=== PATIENT | male | born 2000 | race Caucasian/White ===

== ENCOUNTER 2021-02-08 12:44 | Emergency (ER) | payer OTHER, SELFPAY ==
[2021-02-08 12:45] VITALS: BP 150/95; PULSE 82; RESP 20; TEMP 36.7; O2SAT 100; BMI 32.3
--- NOTE | 2021-02-08 12:52 | HMH.EDGENADL ---
ED Disposition Clinical Impression: Strain of rectus abdominis muscle Qualifiers: Encounter type: initial encounter Qualified Code(s): S39.011A - Strain of muscle, fascia and tendon of abdomen, initial encounter Disposition: Home, Self-Care Condition on Discharge: Good Referrals: PCPEmily [Primary Care Provider] - 3 days Time of Disposition: 13:36 - Critical Care Critical Care Time: No Attestation: On , the high probability of a clinically significant, sudden or life threatening deterioration of the following system(s) required my full and direct attention, intervention and personal management. The time I documented below is in addition to time spent performing reported procedures but includes the following listed in this critical care notation. Medical Decision Making - Medical Records Medical records reviewed: Yes: I reviewed the patient's medical records. - Pawel Inquiry Pt receiving controlled substance: No Vital Signs: 02/08/21 12:45 Temperature 98.1 F Temperature Source Oral Pulse Rate [Left Radial] 82 Respiratory Rate 20 Blood Pressure [Right Arm] 150/95 H Blood Pressure Mean [Right Arm] 113 Blood Pressure Source [Right Arm] Automatic Cuff Blood Pressure Position [Right Arm] Sitting 02 Sat by Pulse Oximetry 100 Oxygen Delivery Method Room Air Medical Decision Narrative: 20yo M evaluated for concern of possible hernia. Patient is in no acute distress initial evaluation. He is ambulatory without difficulty. Exam is benign. Patient's history of feeling extra contents in his scrotum that are now not there is concerning for possible hernia. Offered the patient a CAT scan but he declines at this time as his exam is unremarkable. Encourage patient to follow-up with his PCP early next week. Strongly counseled the patient on return to emergency department parameters. Patient voiced understanding. Patient is appropriate and stable for discharge at this time. General Adult HPI - General Stated complaint: possible hernia in groin area Time Seen by Provider: 02/08/21 12:52 Mode of Arrival: Ambulatory - History of Present Illness HPI narrative: 20yo M without significant past medical history reports emergency department secondary to pain in his scrotum while he was at work. He reports he was lifting a heavy pallet when he suddenly developed sharp pain in his scrotum. He denies previous episodes similar to this. He denies any surgery to this area or his abdomen in the past. Patient does smoke daily. He denies any recent fever, nausea/vomiting/diarrhea. Patient was concerned he may have a hernia. He spoke with a friend that is a nurse and he advised him to be evaluated emergency department. Patient states he did go to the restroom and checked himself at work and felt as though he had extra material in his scrotum but he checked again before arriving at the emergency department and it was no longer there. [facility] History - Hepatitis A Screen Drug use history?: No Attestation statement:: This patient has been screened for Hepatitis A risk factors. I have reviewed the patient's past medical history: Yes - Social History Tobacco Type: cigarettes ROS Obtained: Yes All systems reviewed & no additional complaints Physical Exam - General General appearance: alert, in no apparent distress - Head Head exam: atraumatic, normocephalic, normal inspection - Eye Eye exam: Present: normal appearance, EOMI - Chest Chest inspection: Present: symmetric chest wall rise - Respiratory Respiratory exam: Present: normal lung sounds bilaterally. Absent: respiratory distress - Cardiovascular Cardiovascular exam: Present: regular rate, normal rhythm. Absent: JVD - Abdominal Exam Abdominal exam: Present: soft, tenderness (Mild tenderness along superior pubic bones bilaterally), normal bowel sounds. Absent: distention - exam: Present: normal inspection, normal testicular lie. Absent: testicular
[2021-02-08 13:40] VITALS: BP 160/85; PULSE 84; RESP 18; TEMP 36.8; O2SAT 99
== END 2021-02-08 13:42 | disposition home or self-care (01) ==
PROVIDERS: Emergency Provider Family Medicine
DX: S39.011A Strain of muscle, fascia and tendon of abdomen, initial encounter (principal); X50.0XXA Overexertion from strenuous movement or load, initial encounter; Y92.69 Other specified industrial and construction area as the place of occurrence of the external cause; F17.210 Nicotine dependence, cigarettes, uncomplicated
CPT/HCPCS: 99281

== ENCOUNTER 2023-01-15 15:48 | Emergency (ER) | payer SELFPAY ==
[2023-01-15 15:58] VITALS: BP 141/79; PULSE 83; RESP 18; TEMP 36.7; O2SAT 100; BMI 38.2
[2023-01-15 16:14] VITALS: BP 135/80; PULSE 83; RESP 17; TEMP 36.7; O2SAT 99; BMI 38.1
--- NOTE | 2023-01-15 16:16 | EXP.UTC ---
Discharge Plan Disposition Patient Disposition: Home, Self-Care Condition: Good Prescriptions Prescriptions: New cyclobenzaprine 10 mg Tablet 10 mg PO BID PRN (Reason: Muscle Spasm) Qty: 20 0RF methylprednisolone 4 mg Tablets,Dose Pack 4 mg PO DIRECTED Qty: 21 0RF Referrals Follow up/Referrals: Provider,Referral, [Primary Care Provider] - See instructions Activity Restrictions/Add. Instructions Additional Instructions/Restrictions: Go home and rest. It would be best if you rested tomorrow too. No heavy lifting. No twisting. Take the oral medications as directed. The muscle relaxer (cyclobenzaprine--Flexeril) will make you drowsy, so don't drive or operate heavy machinery after taking it. Don't start the oral steroids (medrol dose pack) until tomorrow, since you had the shots in here today. Follow up with your regular doctor. GO TO THE ER FOR ANY WORSENING SYMPTOMS OR CONCERN, ESPECIALLY BOWEL OR BLADDER ISSUES, SADDLE AREA NUMBNESS, FEVER, ETC Clinical Impressions Clinical Impression: Low back pain Stand Alone Forms Stand Alone Forms: Work/School Release Instructions Patient Instructions: DI for Low Back Pain, Cyclobenzaprine Discharge ED Provider: David Cramer [facility] General Stated complaint: back pain Mode of Arrival: Ambulatory Source of Information: Patient Limitations: No Limitations Time Seen by Provider: 01/15/23 16:16 Description of Symptoms (Recalled from Triage Doc. by RN): pt c/o R sided lower back pain radiating down R lower glute. Pt denies any injury. History of Present Illness Provider Complaint: He states that for the past 1 day he has had low back pain that radiates down his right leg. He denies any injury. He denies any urinary or bowel complaints. Related Data Previous Rx's Medication Instructions Recorded cyclobenzaprine 10 mg tablet 10 mg PO BID PRN Muscle Spasm #20 01/15/23 tabs methylprednisolone 4 mg tablets in 4 mg PO DIRECTED #21 tabs 01/15/23 a dose pack Allergies Allergy/AdvReac Type Severity Reaction Status Date / Time morphine Allergy Verified 01/15/23 16:[address] [facility] Disclaimer: The information contained in this section may have been updated after the patient was seen, as this information can be updated by other users. Social History Smoking Status: Never smoker alcohol intake: never current occupational status: employed Travel in the last 8 weeks: None ROS Obtained: Yes All systems reviewed & no additional complaints except as documented Constitutional Constitutional: Denies chills and Denies fever(s) Eyes Eyes: Denies eye discharge ENT Ears, Nose, Mouth, and Throat: Denies dizziness, Denies otalgia and Denies sore throat Cardiovascular Cardiovascular: Denies chest pain Respiratory Respiratory: Denies shortness of breath, Denies chest congestion, Denies cough, Denies stridor and Denies wheezing Gastrointestinal Gastrointestingal: Denies nausea or vomiting Musculoskeletal Musculoskeletal: Reports as per HPI and Reports back pain Integumentary/Breasts Skin/Breast: Denies rash Neurologic Neurologic: Denies dizziness and Denies paresthesias Allergic/Immunologic Allergic/Immunologic: Denies wheezing Physical Exam General General appearance: alert and in no apparent distress Head Head exam: atraumatic, normocephalic and normal inspection Eye Eye exam: Present normal appearance, PERRL and EOMI ENT ENT exam: Present normal exam, normal oropharynx, mucous membranes moist, TM's normal bilaterally and normal external ear exam Neck Neck exam: Present normal inspection, full ROM and trachea midline; Absent meningismus or lymphadenopathy Chest Chest inspection: Present normal inspection and symmetric chest wall rise; Absent tenderness Respiratory Respiratory exam: Present normal lung sounds bilaterally; Absent respiratory distress Cardiovascular Cardiov
[2023-01-15 17:12] VITALS: BP 135/80; PULSE 83; RESP 17; TEMP 36.6
== END 2023-01-15 17:13 | disposition home or self-care (01) ==
PROVIDERS: Emergency Provider Nurse Practitioner Family
DX: M54.50 Low back pain, unspecified (principal)
CPT/HCPCS: 96372; 99212; 99214; G0463

== ENCOUNTER 2023-08-28 23:19 | Emergency (ER) | payer SELFPAY ==
--- NOTE | 2023-08-28 23:13 | ECG_ITS ---
APPROVED REPORT Exam: Resting ECG HR:85 bpm ECG Measurements Heart Rate 85 AXES MN 186 P 55 QRSd 102 QRS 54 QT 357 T 32 QTc 399 Conclusion SINUS RHYTHM NORMAL ECG UNCONFIRMED REPORT Electronically signed by : Min Denton MD 08/30/2023 08:40:30
[2023-08-28 23:19] VITALS: BP 149/85; PULSE 95; RESP 19; TEMP 36.8; O2SAT 96; BMI 45.6
[2023-08-28 23:27] LABS: POC Glucose,Bedside 89 (70-110)
--- NOTE | 2023-08-28 23:30 | CT_ITS ---
PROCEDURE INFORMATION: Exam: CT Head Without Contrast Exam date and time: 08/29/2023 12:40 AM Age: 22 years old Clinical indication: Stroke-like symptoms; Headache; Additional info: Left sided numbness weakness TECHNIQUE: Imaging protocol: Computed tomography of the head without contrast. Radiation optimization: All CT scans at this facility use at least one of these dose optimization techniques: automated exposure control; mA and/or kV adjustment per patient size (includes targeted exams where dose is matched to clinical indication); or iterative reconstruction. Other technique: STROKE PROTOCOL was implemented. REPORTING DATA: Count of CT and Cardiac NM exams in prior 12 months: This patient has received 0 known CTs and 0 known cardiac nuclear medicine studies in the 12 months prior to the current study. COMPARISON: No relevant prior studies available. FINDINGS: Brain: Normal. No hemorrhage. Age appropriate white matter. No mass effect. No focal mass. The bustillo-white matter junction is intact. Cerebral ventricles: No ventriculomegaly. Paranasal sinuses: Visualized sinuses are unremarkable. No fluid levels. Mastoid air cells: Visualized mastoid air cells are well aerated. Bones/joints: Unremarkable. No acute fracture. Soft tissues: Unremarkable. IMPRESSION: Normal examination of brain. There is no acute intracranial abnormality. There is no structural abnormality. ASSESSMENT: ASPECTS (Stephanie Stroke Program Early CT Score) is 10.
--- NOTE | 2023-08-28 23:30 | XR_ITS ---
PROCEDURE INFORMATION: Exam: XR Chest Exam date and time: 08/29/2023 12:05 AM Age: 22 years old Clinical indication: Pain; Chest pressure; Additional info: Chest pain TECHNIQUE: Imaging protocol: Radiologic exam of the chest. Views: 1 view. COMPARISON: No relevant prior studies available. FINDINGS: Lungs: Unremarkable. No consolidation. There is no focal mass. Pleural spaces: Unremarkable. No pleural effusion. No pneumothorax. Heart/Mediastinum: Unremarkable. No cardiomegaly. Bones/joints: Unremarkable. There is no acute fracture present. IMPRESSION: No evidence for acute cardiac or pulmonary process.
--- NOTE | 2023-08-28 23:31 | CT_ITS ---
PROCEDURE INFORMATION: Exam: CTA Neck With Contrast Exam date and time: 08/29/2023 12:46 AM Age: 22 years old Clinical indication: Stroke-like symptoms; Headache; Additional info: Left sided numbness weakness TECHNIQUE: Imaging protocol: Computed tomographic angiography of the neck with contrast. Exam focused on the cervical segments of the vasculature. 3D rendering (Not supervised by radiologist): MIP and/or 3D reconstructed images were created by the technologist. Radiation optimization: All CT scans at this facility use at least one of these dose optimization techniques: automated exposure control; mA and/or kV adjustment per patient size (includes targeted exams where dose is matched to clinical indication); or iterative reconstruction. Contrast material: ISOVUE; Contrast volume: 100 ml; Contrast route: INTRAVENOUS (IV); REPORTING DATA: Count of CT and Cardiac NM exams in prior 12 months: This patient has received 0 known CTs and 0 known cardiac nuclear medicine studies in the 12 months prior to the current study. COMPARISON: CT HEAD/BRAIN WO CON 08/29/2023 12:40 AM FINDINGS: Right common carotid artery: No stenosis. No dissection or occlusion. Right internal carotid artery: No significant stenosis. No dissection or occlusion. Right external carotid artery: No occlusion or stenosis of the origin. Left common carotid artery: No stenosis. No dissection or occlusion. Left internal carotid artery: No significant stenosis. No dissection or occlusion. Left external carotid artery: No occlusion or stenosis of the origin. Right vertebral artery: No stenosis. No dissection or occlusion. Left vertebral artery: No stenosis. No dissection or occlusion. Soft tissues: Normal. No significant soft tissue swelling. Bones/joints: No acute fracture. IMPRESSION: Unremarkable examination with no significant stenosis, dissection, or occlusion. REFERENCES: NASCET CRITERIA. The degree of stenosis in the cervical segment of the internal carotid artery is based on NASCET criteria. Normal is no stenosis. Mild is less than 50% stenosis. Moderate is 50-69% stenosis. Severe is 70% to 99% stenosis. Total occlusion is no detectable patent lumen.
--- NOTE | 2023-08-28 23:31 | CT_ITS ---
PROCEDURE INFORMATION: Exam: CTA Head With Contrast, Arteriography Exam date and time: 08/29/2023 12:46 AM Age: 22 years old Clinical indication: Stroke-like symptoms; Headache; Additional info: Left sided numbness weakness TECHNIQUE: Imaging protocol: Computed tomographic angiography of the head with contrast. Exam focused on the arteries. 3D rendering (Not supervised by radiologist): MIP and/or 3D reconstructed images were created by the technologist. Radiation optimization: All CT scans at this facility use at least one of these dose optimization techniques: automated exposure control; mA and/or kV adjustment per patient size (includes targeted exams where dose is matched to clinical indication); or iterative reconstruction. Contrast material: ISOVUE; Contrast volume: 100 ml; Contrast route: INTRAVENOUS (IV); REPORTING DATA: Count of CT and Cardiac NM exams in prior 12 months: This patient has received 0 known CTs and 0 known cardiac nuclear medicine studies in the 12 months prior to the current study. COMPARISON: CT HEAD/BRAIN WO CON 08/29/2023 12:40 AM FINDINGS: ANTERIOR CIRCULATION: Right internal carotid artery: Intracranial segment is patent with no significant stenosis. No aneurysm. Right middle cerebral artery: No occlusion or significant stenosis. No aneurysm. Right anterior cerebral artery: No occlusion or significant stenosis. No aneurysm. Left internal carotid artery: Intracranial segment is patent with no significant stenosis. No aneurysm. Left middle cerebral artery: No occlusion or significant stenosis. No aneurysm. Left anterior cerebral artery: No occlusion or significant stenosis. No aneurysm. POSTERIOR CIRCULATION: Right vertebral artery: No occlusion or significant stenosis. No aneurysm. Left vertebral artery: No occlusion or significant stenosis. No aneurysm. Basilar artery: No occlusion or significant stenosis. No aneurysm. Right posterior cerebral artery: No occlusion or significant stenosis. No aneurysm. Left posterior cerebral artery: No occlusion or significant stenosis. No aneurysm. Veins: There is no venous thrombosis. Brain: No definite mass, mass effect, or midline shift. Cerebral ventricles: No ventriculomegaly. Bones/joints: Unremarkable. No acute fracture. Soft tissues: Unremarkable. IMPRESSION: No evidence for a embolism, dissection, aneurysm, or venous thrombosis. There is no significant stenosis.
--- NOTE | 2023-08-28 23:46 | PC.NURSE ---
Patient gone to CT
--- NOTE | 2023-08-28 23:50 | PC.NURSE ---
patient back in room at this time.
[2023-08-28 23:51] VITALS: BP 131/75; PULSE 89; RESP 20; O2SAT 98
[2023-08-29] VITALS: BP 135/74; RESP 12
--- NOTE | 2023-08-29 00:17 | PC.NURSE ---
Md on phone with CB nurse navigator Vicky veronica
[2023-08-29 00:27] LABS: Basophils % 0.4 % (0.1-2.0); Eosinophils # 0.3 K/mm3 (0.0-0.4); Eosinophils % 3.7 % (0.1-12.0); Hematocrit 40.8 % (42.0-52.0); Hemoglobin 13.9 g/dL (14.1-18.0); Lymphocytes # 3.1 K/mm3 (0.7-4.5); Lymphocytes % 35.1 % (10-50); Mean Corpuscular HGB Conc 34.1 g/dL (31.8-35.4); Mean Corpuscular Hemoglobin 29.7 pg (27.0-31.2); Mean Corpuscular Volume 87.3 fl (80-94); Mean Platelet Volume 7.4 fl (7.4-10.4); Monocytes # 0.6 K/mm3 (0.1-1.0); Monocytes % 7.2 % (1.7-9.3); Neutrophils # 4.7 K/mm3 (1.8-7.8); Neutrophils % 53.5 % (37.0-80.0); Platelet Count 255 K/mm3 (142-424); Red Blood Count 4.68 M/mm3 (4.60-6.20); Red Cell Distribution Width 13.1 % (11.5-17.5); White Blood Count 8.8 K/mm3 (4.8-10.8)
[2023-08-29 00:34] LABS: Chloride 103 mmol/L (98-107); Potassium 3.5 mmoL/L (3.5-5.1); Sodium 138 mmol/L (136-145)
[2023-08-29 00:37] LABS: Alanine Aminotransferase 39 U/L (12-78); Albumin Level 4.3 g/dl (3.5-5.0); Albumin/Globulin Ratio 1.4 (1.1-1.8); Alkaline Phosphatase 71 U/L (38-126); Anion Gap 11.5 mEq/L (5-15); Aspartate Amino Transferase 44 U/L (17-59); Bilirubin,Total 0.2 mg/dl (0.2-1.3); Blood Urea Nitrogen 15 mg/dl (9-20); Carbon Dioxide 27 mmol/L (22.0-30.0); Creatinine Clearance Estimated 161 mL/min (50-200); Estimated Glomerular Filt Rate 105 ml/min (>60); GFR (African American) 127 ML/MIN (>60); Globulin 3.1 g/dL (1.3-3.2); Total Protein,Serum 7.4 g/dl (6.3-8.2)
[2023-08-29 00:38] LABS: Calcium 8.5 mg/dl (8.4-10.2); Glucose 108 mg/dl (74-100)
[2023-08-29 00:39] LABS: Activated Partial Thrombo Time 29.8 seconds (22.8-30.6); INR 1.06 (0.9-1.1); Prothrombin Time 11.4 seconds (10.1-12.5)
[2023-08-29 00:45] LABS: Cholesterol 184 mg/dl (140-200); Triglycerides 142 mg/dl (30-150); VLDL Cholesterol 28 mg/dL (0-40)
[2023-08-29 00:46] LABS: Chol/HDL Ratio 5.8 (1-3.5); HDL Cholesterol 32 mg/dl (40-60)
[2023-08-29 00:51] LABS: Troponin I < 0.01 ng/ml (0.00-0.034)
[2023-08-29 00:56] LABS: Direct LDL Cholesterol 120.09 mg/dL (100-129)
[2023-08-29 01:01] VITALS: BP 116/70; RESP 16
--- NOTE | 2023-08-29 01:10 | HMH.EDGENADL ---
Discharge Plan Disposition Patient Disposition: Home, Self-Care Prescriptions Prescriptions: No Action No Known Home Medications Referrals Follow up/Referrals: Bonnie Wilson MD [Staff Physician] - See instructions Provider,MD Brad [Primary Care Provider] - See instructions Activity Restrictions/Add. Instructions Additional Instructions/Restrictions: Please call to follow-up with Dr. Wilson regarding your symptoms. Please return to the emergency department if you develop any new or worsening symptoms or become concerned for your health. Clinical Impressions Clinical Impression: Headache associated with sexual activity, Acute left-sided muscle weakness, Numbness on left side, Stroke-like symptoms Discharge ED Provider: David Galindo General Adult HPI General Chief complaint: Weakness Stated complaint: left side weakness since 2144 Time Seen by Provider: 08/28/23 23:20 Mode of Arrival: EMS Source of Information: Patient Limitations: No Limitations Description of Symptoms (Recalled from ER Triage Doc. by RN): 22 yo male presents with CC of left side weakness following coitus. Patient states onset was at 2144, and he delayed calling EMS till 2204. Patient medical history includes sciatica, and 'once upon a time' was told he might have high blood pressure. Patient reports that immediately after orgasming, he felt dizzy and then felt like his lue and lle were heavy and had a horrible headache. Afebrile. VSS. EMV 15. Denies dyspnea, angina, n/v/d. History of Present Illness HPI narrative: 22-year-old male, history of sciatica, on no medications, no other past medical history presents with headache, left upper and lower extremity weakness. He reports symptoms had acute onset at 9:45 PM. He reports that he had headache and dizziness at the same time of onset. He reports no dysarthria, aphasia, he reports that he is face felt weird , but he currently has no symptoms in his face. He reports that he waited a while before calling EMS. He reports that his symptoms have been improving since onset. Patient reports sensitivity to the light. Reports that he continues to have headache. He reports no history of migraines. He does however report a history of intermittent headache and associated visual blurriness that lasts for a few hours at a time, sometimes with associated sensitivity to light and noise. These have been happening infrequently over the last few weeks to months. No recent illness. Related Data Home Medications Medication Instructions Recorded Confirmed No Known Home Medications 08/29/23 08/29/23 Allergies Allergy/AdvReac Type Severity Reaction Status Date / Time morphine Allergy Verified 01/15/23 16:19 [facility] Disclaimer: The information contained in this section may have been updated after the patient was seen, as this information can be updated by other users. Social History (Updated 01/15/23 @ 17:03 by David Cramer APRN) Smoking Status: Unknown if ever smoked alcohol intake: never current occupational status: employed Travel in the last 8 weeks: None ROS Obtained: Yes All systems reviewed & no additional complaints except as documented Physical Exam General General appearance: alert and in no apparent distress Head Head exam: atraumatic and normocephalic Eye Eye exam: Present normal appearance, PERRL, EOMI and nystagmus (Horizontal nystagmus with lateral gaze); Absent conjunctival injection ENT ENT exam: Present normal oropharynx and normal external ear exam Neck Neck exam: Present normal inspection and full ROM; Absent meningismus Chest Chest inspection: Present normal inspection and symmetric chest wall rise; Absent tenderness Respiratory Respiratory exam: Present normal lung sounds bilaterally; Absent respiratory distress Cardiovascular Cardiovascular exam: Present regular rate and normal rhythm Abdominal Exam Abdominal exam: Present soft; Absent distention, t
[2023-08-29 01:30] VITALS: BP 115/65; RESP 14
[2023-08-29 02:00] VITALS: BP 112/58; PULSE 80; RESP 13; O2SAT 99
--- NOTE | 2023-08-29 02:02 | PC.NURSE ---
in room talking with patient at this time.
--- NOTE | 2023-08-29 02:05 | PC.NURSE ---
o/p with CB at this time.
[2023-08-29 02:16] VITALS: BP 112/58; PULSE 73; RESP 14; TEMP 36.5; O2SAT 97
== END 2023-08-29 02:17 | disposition home or self-care (01) ==
PROVIDERS: Emergency Provider Emergency Medicine
DX: G44.89 Other headache syndrome (principal); R29.818 Other symptoms and signs involving the nervous system; M62.81 Muscle weakness (generalized); R07.9 Chest pain, unspecified; R20.0 Anesthesia of skin; R42 Dizziness and giddiness
CPT/HCPCS: 70450; 70496; 70498; 71045; 80053; 80061; 82962; 84484; 85025; 85610; 85730; 93005; 96361; 96374; 96375; 99285; Q9967